=== PATIENT | male | born 1950 | race Caucasian/White ===

== ENCOUNTER 2018-01-25 12:11 | Outpatient (CLI) | payer MEDICARE ==
[~2018-01-25 12:11] MED LIST: ASPI-496 PO; CARV3.122 PO; CARV6.252 PO; LISI-170 PO; METF500T17 PO; OMEP-110 PO
[2018-01-25] MEDS ORDERED: CHOL10003 PO (12:59)
[2018-01-25] MEDS ORDERED: FLUT16SP NAS (12:59)
[2018-01-25] MEDS ORDERED: SACU1TAB PO (12:59)
[2018-01-25] MEDS ORDERED: NITR0.4T28 SL (12:59)
[2018-01-25] MEDS ORDERED: FURO20TA3 PO (12:59)
[2018-01-25] MEDS ORDERED: POTA20TA6 PO (12:59)
[2018-01-26] MEDS ORDERED: RANI150T4 PO (06:56)
[2018-01-26] MEDS ORDERED: SACU1TAB7 PO (06:56)
[2018-01-28] MEDS ORDERED: SPIR25TA PO (13:56)
[2018-01-28] MEDS ORDERED: FURO20TA3 PO (13:56)
[2018-01-28] MEDS ORDERED: ACET325T14 PO (13:56)
== END 2018-02-01 13:03 | disposition home or self-care (01) ==
LOC: STAR 12:11
PROVIDERS: ATTEND Internal Medicine Cardiovascular Disease
DX: Z02.9 Encounter for administrative examinations, unspecified (principal)

== ENCOUNTER → 2020-01-18 | Outpatient (CLI) | payer MEDICARE ==
[~2020-01-18] MED LIST changes: +ACET325T14 PO; +CARV-39 PO; +CHOL10003 PO; +FLUT16SP24 NAS; +FURO-93 PO; +FURO20TA3 PO; +NITR0.4T28 SL; +POTA20TA6 PO; +RANI150T4 PO; +SACU1TAB PO; +SACU1TAB7 PO; +SPIR25TA PO
== END | disposition home or self-care (01) ==
LOC: CFH 06:42
PROVIDERS: ATTEND Internal Medicine Cardiovascular Disease
DX: I42.0 Dilated cardiomyopathy (principal); I10 Essential (primary) hypertension; E11.9 Type 2 diabetes mellitus without complications
CPT/HCPCS: 93306